=== PATIENT | female | born 1955 | race Caucasian/White ===

== ENCOUNTER 2019-07-13 05:17 | Day surgery (SDC) | payer BC ==
[~2019-07-13] VITALS: Ht 177.8 cm; Wt 102.3 kg
[~2019-07-13 05:17] MED LIST: BAYER CHEWABLE81 MG PO; DYAZIDE 37.5/251 CAP PO; GLUCOPHAGE500 MG PO; LISINOPRIL2.5 MG PO; PRAVASTATIN SOD10 MG PO
[2019-07-13 05:38] LABS: HEMATOCRIT 39.8 % (36.0-48.0); HEMOGLOBIN 13.6 g/dL (12-16); MCH 29.8 pg (26.0-34.0); MCHC 34.2 g/dL (31.0-37.0); MCV 87.1 fL (80.0-100.0); MEAN PLATELET VOLUME 10.5 fL (7.4-10.4); RBC 4.57 10x6/uL (4.00-5.40); RDW 12.9 % (11.5-14.5); WBC 4.6 10x3/uL (4.8-10.8)
[2019-07-13 05:55] LABS: ANION GAP 10.8 mmol/L (8-16); CALCIUM 9.2 mg/dL (8.5-10.1); CARBON DIOXIDE 30.2 mmol/L (21.0-32.0)
[2019-07-13 06:09] VITALS: BMI 32.3
[2019-07-13 06:23] VITALS: BP 127/80; Ht 177.8 cm; Wt 102.3 kg
--- NOTE | 2019-07-13 09:31 | NUR ---
0850-REC'D FROM RR,ALERT AND AWAKE.DENIES PAIN, DRESSING TO LEFT FOOT CDI,ICE PACK IN PLACE,CAP REFILL WNL. VSS.
--- NOTE | 2019-07-13 09:33 | NUR ---
0855-ASSISTED TO RESTROOM,NWB TO LEFT FOOT. ABLE TO URINATE WITHOUT COMPLICATIONS. FULL LIQUID TRAY TO ROOM.
--- NOTE | 2019-07-13 09:50 | OP ---
PATIENT NAME: LENORA MATHIS MEDICAL RECORD: [id number] :57 LOCATION:D.OPS ADMISSION DATE: SURGEON: GABINO VILLAVICENCIO DPM DATE OF OPERATION: 07/13/2019 PREOPERATIVE DIAGNOSES: 1. Plantar plate rupture, left second metatarsophalangeal joint. 2. Hammertoe deformity, left second proximal interphalangeal joint. POSTOPERATIVE DIAGNOSES: 1. Plantar plate rupture, left second metatarsophalangeal joint. 2. Hammertoe deformity, left second proximal interphalangeal joint. PROCEDURES: 1. Left second metatarsal Qi osteotomy. 2. Left second MPJ plantar plate repair. 3. Left second PIPJ fusion. ANESTHESIA: Local with general anesthesia. HEMOSTASIS: Left thigh tourniquet at 350 mmHg. PREOPERATIVE DETAILS: The patient was taken to the OR and placed on the operating table in a supine position followed by induction of general anesthesia and infiltration of local anesthetic. The left extremity was then prepped and draped in usual aseptic technique followed by exsanguination and inflation of tourniquet. PROCEDURE #1: Left second Qi osteotomy: A 15-blade was used to create an incision from the distal mid shaft of the second metatarsal in a curvilinear fashion upon top of the second digit to the PIPJ. The incision was deepened down through subcutaneous tissue to the extensor longus tendon, which was transected in a Z fashion. The DIPJ was then exposed through meticulous dissection as well as the dorsal aspect of the second MPJ. A 15 blade was used to create a linear capsulotomy in the dorsal aspect of the second MPJ. The metatarsal head was delivered and McGlamry scoop elevator was used to release the plantar contracture. At this time Qi osteotomy was performed from dorsal distal to plantar proximal through the second metatarsal head. The capital fragment was translocated proximally and temporarily fixated with a K-wire. A second K-wire was placed in the midshaft of the proximal phalanx of the second digit. PROCEDURE #2: Plantar plate repair left second MPJ: Upon initial inspection of the plantar plate, there was noted to be a significant sprain and/or partial rupture of the lateral aspect of the plantar plate. At this time, a 15-blade was used to finish the tear at the base of the proximal phalanx. A FiberWire was then placed up through the plantar plate, 2 small drill holes were made in the base of proximal phalanx of the second digit. The FiberWire was passed up through the 2 small drill holes. At this time, the Qi osteotomy was fixated with 2 popoff screws. The FiberWire was passed up through the small drill holes was then securely fixated with a surgeon's knots holding the digit in a slightly plantarflexed position. Following a repair of the plantar plate, it was noted that the second digit was in a very rectus position. PROCEDURE #3: PIPJ fusion, left second digit: The PIPJ was exposed. A OPERATIVE REPORT [id number] LENORA MATHIS sagittal saw was used to resect the head of the proximal phalanx at the base of middle phalanx. Small drill holes were made to accommodate the hammer tube graft. The hammer tube graft was placed in the proximal phalanx first and then the middle phalanx was placed on top of the hammer tube with the fusion site compressed. Excellent alignment was noted as well as a rectus digit. The wound was flushed. The second MPJ was repaired with 2-0 Vicryl, the extensor longus tendon was repaired with 4-0 Rapide and the subcutaneous tissue was reapproximated with 4-0 Rapide and the skin was closed with 4-0 Rapide in a subcuticular technique followed by Dermabond. Adaptic, 4 x 4, and Conform were used to dress the wound followed by application of a modified Edwards compression dressing. The tourniquet was deflated. POSTOPERATIVE DETAILS: The patient tolerated the procedure well and left the OR with vital signs stable and vascular status at preoperative levels. The patient was transported to recovery per anesthesia in stable condition. TRANSINT:[id number] Voice Confirmation ID: [id number] DOCUMENT ID: [id number] GABINO VILLAVICENCIO DPM at 0950 CC: [id number] DICTATION DATE: 07/13/19841 ADOPTION COUNSELOR: 07/13/19 0902 [facility] [address] [place] [address]
--- NOTE | 2019-07-13 10:10 | NUR ---
1000-DISCHARGE CRITERIA MET.REMOVED IV FROM RIGHT HAND WITH CATH INTACT. DISPOSED INTO [facility] [facility],COVERED SITE WITH BANDAID. REVIEWED DISCHARGE INSTRUCTIONS WITH PT. VERBALIZED UNDERSTANDING WITHOUT QUESTIONS OR CONCERNS. AWAITING FOR FRIEND TO ARRIVE TO DRIVE HOME.
--- NOTE | 2019-07-13 10:48 | NUR ---
1045-RIDE HERE TO TAKE PATIENT HOME. DISCHARGED IN STABLE CONDITION. DISCHARGE INSTRUCTIONS IN HAND
== END 2019-07-13 10:45 | disposition home or self-care (01) ==
LOC: D.OPS 05:17
PROVIDERS: Anesthesiology; ATTEND Podiatrist
DX: S93.522A Sprain of metatarsophalangeal joint of left great toe, initial encounter (principal); M20.42 Other hammer toe(s) (acquired), left foot; Z01.812 Encounter for preprocedural laboratory examination